=== PATIENT | female | born 1975 | race Caucasian/White ===

== ENCOUNTER 2020-05-14 16:39 | Observation (INO) ==
[2020-05-14] MEDS ORDERED: Ondansetron 4 MG/2 ML VIAL ONE (16:58)
[2020-05-14] MEDS ORDERED: Ondansetron 4 MG/2 ML VIAL IVP ONE ×2 (17:08→18:35)
[2020-05-14 17:28] LABS: Basophils # 0.1 K/mcL (0.0-0.2); Basophils % 1.2 %; Eosinophils # 0.3 K/mcL (0.0-0.6); Eosinophils % 3.6 %; Hematocrit 40.7 % (35.3-44.9); Hemoglobin 13.9 g/dL (11.5-15.4); Immature Granulocytes % 0.5 % (0-4); Lymphocytes # 3.3 K/mcL (0.6-4.6); Lymphocytes % 34.3 %; Mean Corpuscular HGB Conc 34.2 g/dL (31.6-35.5); Mean Corpuscular Hemoglobin 30.8 pg (28.0-33.3); Mean Platelet Volume 8.8 fL (9.4-12.4); Monocytes # 0.7 K/mcL (0.0-1.3); Monocytes % 6.9 %; Neutrophils # 5.1 K/mcL (1.6-8.9); Platelet Count 358 K/mcL (140-400); Red Blood Count 4.52 M/mcL (3.82-4.97); Red Cell Distribution Width 12.7 % (11.5-14.5); Segmented Neutrophils % 53.5 %; White Blood Count 9.6 K/mcL (4.3-11.1)
[2020-05-14] MEDS ORDERED: Aspirin 325 MG TABLET PO ONE (18:42)
[2020-05-14] MEDS ORDERED: *HR* Promethazine 25 MG/ML VIAL IVP ONE ×2 (18:54→18:57)
[2020-05-14] MEDS: Nitroglycerin 0.4 MG TAB.SUBL SL PRN ×2 (19:13→19:55)
[2020-05-14 19:21] LABS: BUN/Creatinine Ratio 12 (6-26); Blood Urea Nitrogen 9 mg/dL (6-20); Calcium 9.9 mg/dL (8.6-10.3); Carbon Dioxide 26 mEq/L (23-29); Chloride 96 mEq/L (98-107); Glucose 103 mg/dL (70-105); Osmolality,Calculated 281 (280-300); Potassium 3.1 mEq/L (3.5-5.1); Sodium 136 mEq/L (136-145); Troponin I < 0.03 ng/mL (< 0.04); eGFR For African Americans > 60 (> 60); eGFR For Non-African Americans > 60 (> 60)
[2020-05-14] MEDS ORDERED: Potassium Chloride Elixir 20 MEQ/15 ML UDC PO ONE (19:48)
[2020-05-14] MEDS ORDERED: Nitroglycerin 0.4 MG TAB.SUBL SL PRN (20:05)
[2020-05-14] MEDS ORDERED: Ondansetron 4 MG/2 ML VIAL IVP PRN (20:05)
[2020-05-14] MEDS ORDERED: 0.9 % Sodium Chloride 500 ML IVC ONE (22:56)
[2020-05-15 06:16] LABS: Basophils # 0.1 K/mcL (0.0-0.2); Eosinophils # 0.3 K/mcL (0.0-0.6); Eosinophils % 4.1 %; Hematocrit 37.6 % (35.3-44.9); Hemoglobin 12.8 g/dL (11.5-15.4); Immature Granulocytes % 0.4 % (0-4); Lymphocytes # 2.7 K/mcL (0.6-4.6); Lymphocytes % 34.8 %; Mean Corpuscular Hemoglobin 30.8 pg (28.0-33.3); Mean Corpuscular Volume 90.6 fL (83.0-100.0); Mean Platelet Volume 8.7 fL (9.4-12.4); Monocytes # 0.6 K/mcL (0.0-1.3); Monocytes % 7.6 %; Platelet Count 302 K/mcL (140-400); Red Blood Count 4.15 M/mcL (3.82-4.97); Red Cell Distribution Width 12.8 % (11.5-14.5); Segmented Neutrophils % 52.1 %; White Blood Count 7.8 K/mcL (4.3-11.1)
[2020-05-15 06:38] LABS: Alanine Aminotransferase 47 Units/L (7-52); Albumin 3.8 g/dL (3.5-5.7); Albumin/Globulin Ratio 1.2 (1.1-2.2); Alkaline Phosphatase 84 Units/L (34-104); Aspartate Amino Transferase 30 Units/L (13-39); BUN/Creatinine Ratio 15 (6-26); Bilirubin,Total 0.6 mg/dL (0.3-1.0); Blood Urea Nitrogen 11 mg/dL (6-20); Calcium 9.2 mg/dL (8.6-10.3); Carbon Dioxide 29 mEq/L (23-29); Chloride 101 mEq/L (98-107); Globulin 3.1 g/dL (2.4-3.5); Glucose 110 mg/dL (70-105); Osmolality,Calculated 288 (280-300); Potassium 3.6 mEq/L (3.5-5.1); Sodium 139 mEq/L (136-145); Total Protein 6.9 g/dL (6.4-8.9); eGFR For African Americans > 60 (> 60); eGFR For Non-African Americans > 60 (> 60)
[2020-05-15 06:45] LABS: Thyroid Stimulating Hormone 1.799 mcIU/mL (0.340-5.600)
[2020-05-15 08:33] LABS: Estimated Average Glucose 134 mg/dl
[2020-05-15] MEDS ORDERED: clonazePAM 0.5 MG TABLET PO PRN (09:00)
[2020-05-15] MEDS ORDERED: Lisinopril-HCTZ 20-12.5mg TABLET PO SCH (09:00)
[2020-05-15] MEDS ORDERED: Aspirin 81 MG TAB.CHEW PO SCH (09:00)
[2020-05-15] MEDS ORDERED: lamoTRIgine 100 MG TABLET PO SCH (09:00)
[2020-05-15] MEDS: Nitroglycerin 0.4 MG TAB.SUBL SL PRN (09:02)
[2020-05-15] MEDS ORDERED: Isovue-370 500 ML BOTTLE IVP ONE (09:12)
[2020-05-15] MEDS ORDERED: Metoprolol 100 MG TABLET PO PRN (09:14)
[2020-05-15] MEDS ORDERED: IVABRADINE HCL 7.5 MG TABLET PO STA (09:19)
[2020-05-15 11:09] VITALS: BP 118/74
[2020-05-15] MEDS ORDERED: 0.9 % Sodium Chloride 1,000 ML ONE (11:51)
== END 2020-05-15 15:36 | disposition home or self-care (01) ==
LOC: EMEROOARM 16:39 → 3BNU 16:39 → SUATTDRO 20:17 → 3BNU 20:20
PROVIDERS: ADMIT Internal Medicine; ATTEND Internal Medicine